=== PATIENT | male | born 1960 ===

== ENCOUNTER 2024-06-23 10:15 | Inpatient (IN) | payer OTHER ==
[~2024-06-23] VITALS: Ht 175.3 cm; Wt 0.5 kg
[2024-06-23] MEDS ORDERED: METFORMIN HCL1000 M2 PO (14:41)
[2024-06-23] MEDS ORDERED: ISOSORBIDE DINI30 MG PO (14:41)
[2024-06-23] MEDS ORDERED: JANUVIA100 MG PO (14:41)
[2024-06-23] MEDS ORDERED: PLAVIX75 MG PO (14:41)
[2024-06-23] MEDS ORDERED: INDERAL LA80 MG PO (14:42)
[2024-06-23] MEDS ORDERED: ATORVASTATIN CA80 MG PO (14:42)
[2024-06-23] MEDS ORDERED: ENALAPRIL MALEA10 MG PO (14:42)
[2024-06-23 14:45] VITALS: BP 157/85
[2024-06-30] MEDS ORDERED: BUPIVACAINE HCL/Mpf 0.5% 10ML VIAL ONE ×2 (10:54→12:18)
[2024-06-30] MEDS ORDERED: CEFTRIAXONE SODIUM 2,000 MG VIAL ONE ×2 (10:54→12:18)
[2024-06-30] MEDS ORDERED: LIDOCAINE HCL 1%/EPINEPHRINE 20ML VIAL IJ ONE ×2 (10:54→12:18)
[2024-06-30] MEDS ORDERED: METRONIDAZOLE/SODIUM CHLORIDE 500 MG/100 ML PIGGYBACK IV ONE ×3 (10:54→16:31)
[2024-06-30] MEDS ORDERED: ONDANSETRON HCL 2 MG/ML VIAL IV PRN (12:45)
[2024-06-30] MEDS ORDERED: OxyCODONE HCL 5 MG TABLET (ROXICODONE) PO PRN (12:45)
[2024-06-30] MEDS ORDERED: MORPHINE SULFATE 4 MG/ML CARTRIDGE IV PRN (12:45)
[2024-06-30] MEDS ORDERED: 0.9 % SODIUM CHLORIDE 1,000 ML IV SCH (12:45)
[2024-06-30] MEDS ORDERED: DEXTROSE 50 % IN WATER 0.5 G/ML DISP.SYRIN IV PRN (12:45)
[2024-06-30] MEDS ORDERED: ENALAPRILAT DIHYDRATE 1.25 MG/ML VIAL IV PRN (15:15)
[2024-06-30] MEDS ORDERED: MORPHINE SULFATE 4 MG/ML VIAL IV ONE ×2 (15:15→16:00)
[2024-06-30] MEDS ORDERED: MEPERIDINE HCL 25 MG/ML AMPUL IV ONE (16:30)
[2024-06-30] MEDS ORDERED: ENALAPRILAT DIHYDRATE 1.25 MG/ML VIAL IV ONE (16:31)
[2024-06-30] MEDS ORDERED: HYOSCYAMINE SULFATE 0.125 MG TAB.SUBL SL SCH (17:00)
[2024-06-30] MEDS ORDERED: GABAPENTIN 300 MG CAPSULE PO SCH (17:00)
[2024-06-30] MEDS ORDERED: METRONIDAZOLE/SODIUM CHLORIDE 500 MG/100 ML PIGGYBACK IV SCH (17:00)
[2024-06-30] MEDS ORDERED: POLYETHYLENE GLYCOL 3350 17 GM BLIST.PACK PO SCH (17:00)
[2024-06-30 17:23] LABS: HEMOGLOBIN 13.4 g/dL (13-16.00); MEAN CORPUSCULAR HEMOGLOBIN 30.6 pg (27.00-32.0); MEAN CORPUSCULAR HGB CONC 34.3 g/dl (32.0-36.0); PLATELET COUNT 150 K/uL (150-450); RED BLOOD COUNT 4.38 M/uL (4.00-6.00); RED CELL DISTRIBUTION WIDTH 13.6 % (11.5-14.5)
[2024-06-30 17:39] LABS: ALBUMIN 3.8 gm/dL (3.4-5.0); CALCIUM 8.7 mg/dL (8.5-10.1); CREATININE SERUM 0.62 mg/dL (0.70-1.30); GFR 131.02; MAGNESIUM 1.5 mg/dL (1.8-2.4); PHOSPHOROUS 3.1 mg/dL (2.5-4.9); POTASSIUM 4.04 mEq/L (3.5-5.1)
[2024-06-30] MEDS ORDERED: ACETAMINOPHEN 500 MG GEL..CAP PO SCH (20:00)
[2024-06-30 21:00] VITALS: BP 157/85; O2SAT 95
[2024-06-30] MEDS ORDERED: PROPRANOLOL HCL 40 MG TABLET PO SCH (21:00)
[2024-06-30] MEDS ORDERED: FAMOTIDINE/PF 20 MG/2 ML VIAL IV PUSH SCH (21:00)
[2024-07-01 00:53] VITALS: BP 136/65; O2SAT 98
[2024-07-01 08:00] VITALS: BP 139/67; O2SAT 95
[2024-07-01 08:26] LABS: HEMATOCRIT 37.1 % (39.0-48.0); HEMOGLOBIN 12.7 g/dL (13-16.00); MEAN CELL VOLUME 89.3 fL (80.0-100.00); MEAN CORPUSCULAR HEMOGLOBIN 30.6 pg (27.00-32.0); MEAN CORPUSCULAR HGB CONC 34.3 g/dl (32.0-36.0); RED BLOOD COUNT 4.16 M/uL (4.00-6.00); RED CELL DISTRIBUTION WIDTH 13.8 % (11.5-14.5)
[2024-07-01 08:38] LABS: PLATELET COUNT 120 K/uL (150-450)
[2024-07-01 08:51] LABS: ALBUMIN 3.5 gm/dL (3.4-5.0); CALCIUM 8.5 mg/dL (8.5-10.1); CREATININE SERUM 0.69 mg/dL (0.70-1.30); GFR 115.81; MAGNESIUM 1.5 mg/dL (1.8-2.4); PHOSPHOROUS 2.5 mg/dL (2.5-4.9); POTASSIUM 3.91 mEq/L (3.5-5.1)
[2024-07-01] MEDS ORDERED: MAGNESIUM SULFATE IN WATER 50 ML IV NR (09:50)
[2024-07-01] MEDS ORDERED: ISOSORBIDE MONONITRATE 30 MG TABLET PO STA (10:31)
[2024-07-01] MEDS ORDERED: ENALAPRIL MALEATE 10 MG TABLET PO NR (11:00)
[2024-07-01 16:48] VITALS: BP 122/69; O2SAT 98
[2024-07-01] MEDS ORDERED: ATORVASTATIN CALCIUM 40 MG TABLET PO SCH (17:00)
[2024-07-01] MEDS ORDERED: ENOXAPARIN SODIUM 40 MG/0.4 ML SYRINGE SUBCUTANEO SCH (17:00)
[2024-07-02] VITALS: BP 123/61; O2SAT 90
[2024-07-02 04:10] VITALS: BP 120/69; O2SAT 91
[2024-07-02 08:00] VITALS: BP 189/93; O2SAT 97
[2024-07-02 08:38] LABS: HEMATOCRIT 39.2 % (39.0-48.0); HEMOGLOBIN 13.5 g/dL (13-16.00); MEAN CELL VOLUME 89.3 fL (80.0-100.00); MEAN CORPUSCULAR HEMOGLOBIN 30.9 pg (27.00-32.0); MEAN CORPUSCULAR HGB CONC 34.6 g/dl (32.0-36.0); RED BLOOD COUNT 4.38 M/uL (4.00-6.00); RED CELL DISTRIBUTION WIDTH 14.2 % (11.5-14.5)
[2024-07-02] MEDS ORDERED: ENOXAPARIN SODIUM 40 MG/0.4 ML SYRINGE SUBCUTANEO SCH (09:00)
[2024-07-02] MEDS ORDERED: ISOSORBIDE MONONITRATE 30 MG TABLET PO SCH (09:00)
[2024-07-02] MEDS ORDERED: ENALAPRIL MALEATE 10 MG TABLET PO SCH (09:00)
[2024-07-02 09:04] LABS: CALCIUM 8.7 mg/dL (8.5-10.1); CREATININE SERUM 0.66 mg/dL (0.70-1.30); GFR 121.9; POTASSIUM 4.02 mEq/L (3.5-5.1)
[2024-07-02 09:52] LABS: MANUAL PLATELET COUNT 146; PLATELET COUNT 124 K/uL (150-450)
[2024-07-02 10:16] LABS: PHOSPHOROUS 1.1 mg/dL (2.5-4.9)
[2024-07-02] MEDS ORDERED: TRAMADOL HCL 50 MG TABLET PO PRN (12:15)
[2024-07-02] MEDS ORDERED: PANTOPRAZOLE SODIUM 40 MG TABLET.DR PO STA (14:12)
[2024-07-02 16:00] VITALS: BP 153/76; O2SAT 95
[2024-07-03 00:36] VITALS: BP 160/87; O2SAT 96
[2024-07-03 08:00] VITALS: BP 185/91; O2SAT 96
[2024-07-03] MEDS ORDERED: PANTOPRAZOLE SODIUM 40 MG TABLET.DR PO SCH (09:00)
[2024-07-03] MEDS ORDERED: HYOSCYAMINE0.125 M1 SL (11:07)
[2024-07-03] MEDS ORDERED: GABAPENTIN300 MG PO (11:08)
== END 2024-07-03 12:54 | disposition home or self-care (01) | DRG 331 ==
LOC: O/R 06-30 08:55 → SURH 06-30 10:15
PROVIDERS: Internal Medicine Geriatric Medicine; ADMIT Surgery; ATTEND Surgery
PROC: 07BC4ZX Excision of Pelvis Lymphatic, Percutaneous Endoscopic Approach, Diagnostic (ICD-10-PCS; 2024-06-30)
PROC: 4A12X4Z Monitoring of Cardiac Electrical Activity, External Approach (ICD-10-PCS; 2024-06-30)
PROC: 0DTF4ZZ Resection of Right Large Intestine, Percutaneous Endoscopic Approach (ICD-10-PCS; principal; 2024-06-30 10:15)
DX: D37.4 Neoplasm of uncertain behavior of colon (principal); D12.3 Benign neoplasm of transverse colon